=== PATIENT | male | born 1945 | race Caucasian/White ===

== ENCOUNTER 2020-08-22 07:44 | Emergency (ER) | payer OTHER ==
[~2020-08-22] VITALS: Ht 177.8 cm; Wt 86.2 kg
[2020-08-22 07:44] VITALS: BP_SYST 161
[~2020-08-22 07:44] MED LIST: METO-540 PO; VALS1TAB6 PO
--- NOTE | 2020-08-22 07:44 | NUR ---
BROUGHT BACK TO BED #5 AND TRIAGED. REPORT GIVEN TO LISA
--- NOTE | 2020-08-22 07:55 | NUR ---
Pt walked in to ER with c/o heart palpitations and tachycardia. Reports h/o a-fib and states he almost passed out at home prior to coming to ER. V/S stable, pt is afebrile. Currently resting in bed, will continue to monitor.
--- NOTE | 2020-08-22 07:56 | NUR ---
ER Dr. Palacio at bedside examining patient.
--- NOTE | 2020-08-22 08:00 | NUR ---
EKG performed at BS by RN. Physician given copy of EKG for review.
--- NOTE | 2020-08-22 08:04 | NUR ---
Radiology at bedside for CXR
--- NOTE | 2020-08-22 08:10 | NUR ---
Lab at bedside for blood draw.
[2020-08-22 08:17] LABS: BASOPHILS # (AUTO) 0.1 K/uL (0.0-0.2); BASOPHILS % (AUTO) 1.3 % (0.0-2.0); EOSINOPHILS # (AUTO) 0.2 K/uL (0.0-0.4); HEMATOCRIT 49.4 % (36-54); HEMOGLOBIN 16.9 g/dL (14.0-18.0); LYMPHOCYTES # (AUTO) 1.1 K/uL (1.0-5.5); LYMPHOCYTES % (AUTO) 25.5 % (20.5-51.5); MEAN CORPUSCULAR HEMOGLOBIN 32 pg (27-31); MEAN CORPUSCULAR HGB CONC 34 % (32-36); MEAN CORPUSCULAR VOLUME 92 fL (79.0-98.0); MONOCYTES # (AUTO) 0.3 K/uL (0.0-1.0); MONOCYTES % (AUTO) 7.3 % (1.7-9.3); NEUTROPHILS # (AUTO) 2.6 K/uL (1.8-7.7); NEUTROPHILS % (AUTO) 60.9 % (40.0-70.0); PLATELET COUNT (AUTO) 144 K/uL (130-430); RED BLOOD CELL COUNT(AUTO) 5.36 MIL/uL (4.2-6.2); RED CELL DISTRIBUTION WIDTH 12.8 % (9.0-15.0); WHITE BLOOD COUNT (AUTO) 4.2 K/uL (4.8-10.8)
[2020-08-22 08:39] LABS: ANION GAP 6 (5-15); CALCIUM 9.1 mg/dL (8.4-11.0); CHLORIDE 103 mmol/L (98-107); CREATININE 1.27 mg/dL (0.55-1.30); GLUCOSE 113 mg/dL (70-99); POTASSIUM 3.9 mmol/L (3.5-5.1); SODIUM SERUM 140 mmol/L (136-145); UREA NITROGEN, BLOOD 32 mg/dL (8-21)
[2020-08-22 08:45] LABS: ALANINE AMINOTRANSFERASE 36 U/L (12-78); ALBUMIN 3.7 g/dL (3.4-4.8); ASPARTATE AMINOTRANSFERASE 24 U/L (10-37); TOTAL BILIRUBIN 0.6 mg/dL (0.0-1.0)
--- NOTE | 2020-08-22 09:25 | NUR ---
Patient given written and verbal discharge instructions and verbalizes understanding. ER MD discussed with patient the results and treatment provided. Patient in stable condition. ID arm band removed. No prescriptions given. Patient educated on pain management and to follow up with PMD. Pain Scale 0. Opportunity for questions provided and answered. Medication side effect fact sheet provided.
[2020-08-22 09:26] VITALS: BP_SYST 161
== END 2020-08-22 09:25 | disposition home or self-care (01) ==
LOC: SED 07:44
DX: R55 Syncope and collapse (principal); I48.91 Unspecified atrial fibrillation; Z88.8 Allergy status to other drugs, medicaments and biological substances; Z79.899 Other long term (current) drug therapy
CPT/HCPCS: 36415; 71045; 80053; 82550-TC; 83880; 84484; 85025; 93005; 99285